=== PATIENT | male | born 1950 | race Caucasian/White ===

== ENCOUNTER 2017-05-21 23:30 | Emergency (ER) | payer BC ==
[2017-05-21] MEDS ORDERED: Albuterol/Ipratropium 3.0-0.5 MG/3 ML Neb Soln NEB ONE (23:40)
[2017-05-22] MEDS ORDERED: Albuterol 8 GM Inhaler INH ONE (00:26)
[2017-05-22] MEDS ORDERED: predniSONE 20 MG Tab PO ONE (00:26)
[2017-05-22 00:39] VITALS: BP 155/72
--- NOTE | 2017-05-22 05:25 | ER ---
DATE SEEN: 05/21/2017 CHIEF COMPLAINT: Cough. HISTORY OF PRESENT ILLNESS: This is a 66-year-old male who has had a cough for a week or so that is nonproductive, associated with wheezing and he wants to make sure it does not turn to pneumonia. He was in the clinic, but treated conservatively. He denies any fever or chest pain, but is short of breath. MEDICATIONS: Reviewed. Please see the nurse's notes SOCIAL HISTORY: Denies smoking. REVIEW OF SYSTEMS: All other systems were unremarkable. ALLERGIES: Penicillin. PHYSICAL EXAMINATION: GENERAL: He is in no cardiopulmonary distress. He is pleasant, overnourished. EARS, NOSE, AND THROAT: Negative. NECK: No thyromegaly or lymphadenopathy. CARDIOVASCULAR: Negative. RESPIRATORY SYSTEM: He has end-expiratory rhonchi on both lung woods. LABORATORY DATA: Chest x-ray: I reviewed the image independently, no acute process. CBC: Mild elevation of white cell count. Troponin negative. EKG; normal sinus rhythm. IMPRESSION: Acute bronchitis. PLAN: 1. DuoNeb x1. 2. Prednisone 10 mg b.i.d. 3. Refill his albuterol to use every 4 hours p.r.n. 2 puffs. I would like him to be seen in the office on Saturday. Return to the ED with any worsening symptoms. /[id number] SHANNAN/MAHSA
--- NOTE | 2017-05-23 07:20 | CR ---
INDICATION: Shortness of breath. CHEST: Two PA views of the chest were obtained and revealed the heart to be normal in size and shape. The aorta is tortuous with calcification in the arch. No definite evidence of CHF is seen. Mild dextroconvex scoliosis of upper middle thoracic spine is noted. Bridging hyperostotic changes are noted in the thoracic spine, mainly in the mid to lower middle area. IMPRESSION: No acute process. No comparisons were available. MTDD
== END 2017-05-22 00:35 | disposition home or self-care (01) ==
LOC: FB.ED 23:30
DX: J20.9 Acute bronchitis, unspecified (principal); Z88.0 Allergy status to penicillin
CPT/HCPCS: 36415; 71010; 80053; 83880; 84484; 85025; 93005; 94640; 99285; A9270; J7620

== ENCOUNTER 2019-07-18 19:37 | Emergency (ER) | payer BC, MEDICARE ==
[2019-07-18] MEDS ORDERED: predniSONE 20 MG Tab PO ONE (19:38)
[2019-07-18] MEDS ORDERED: Albuterol 8 GM Inhaler INH ONE (19:38)
[2019-07-18] MEDS ORDERED: Albuterol/Ipratropium 3.0-0.5 MG/3 ML Neb Soln NEB ONE (19:53)
[2019-07-18] MEDS ORDERED: Albuterol/Ipratropium 3.0-0.5 MG/3 ML Neb Soln ONE (19:54)
--- NOTE | 2019-07-18 19:57 | EDM.PDOC ---
ED HPI GENERAL MEDICAL PROBLEM - General Stated Complaint: SOB; WHEEZING Time Seen by Provider: 07/18/19 19:54 Source of Information: Reports: Patient History Limitations: Reports: No Limitations - History of Present Illness INITIAL COMMENTS - FREE TEXT/NARRATIVE: 68 yo male with cough,shortness of breath and wheezing. This started a week ago, and getting worse. Was seen today at the [facility],given Flonase and Zpak,which have afforded no improvement of his symptoms.He also endorses anxiety and a panic feeling,for account of breathing difficulty. He has obesity,HTN and tobacco abuse( chewing) - Related Data Allergies Allergy/AdvReac Type Severity Reaction Status Date / Time outdoor seasonal Allergy Sneezing, Uncoded 07/18/19 20:01 Itchy eyes Home Meds: Home Meds Metoprolol Succinate 200 mg PO DAILY 10/03/13 [History] Aspirin [Halfprin] 81 mg PO DAILY 06/14/14 [History] Potassium Chloride [Klor-Con 10] 10 meq PO DAILY 06/14/14 [History] amLODIPine [Norvasc] 10 mg PO DAILY 06/14/14 [History] hydroCHLOROthiazide [Hydrochlorothiazide] 25 mg PO DAILY 06/14/14 [History] Azithromycin 1 tab PO ASDIRECTED 07/18/19 [History] Fluticasone Propionate [Flonase] 1 spray AKBAR ASDIRECTED 07/18/19 [History] Loratadine [Claritin] 10 mg PO DAILY PRN 07/18/19 [History] Past Medical History - Past Health History Medical/Surgical History: Denies Medical/Surgical History Cardiovascular History: Reports: High Cholesterol, Hypertension Respiratory History: Reports: SOB Social & Family History - Caffeine Use Caffeine Use: Reports: Coffee, Tea ED ROS GENERAL - Review of Systems Review Of Systems: Comprehensive ROS is negative, except as noted in HPI. ED EXAM, GENERAL - Physical Exam Exam: See Below Exam Limited By: No Limitations General Appearance: Alert, Anxious, Mild Distress Ears: Normal External Exam, Normal Canal, Hearing Grossly Normal, Normal TMs Ear Exam: Bilateral Ear: Auricle Normal, Canal Normal, TM normal Nose: Normal Inspection Throat/Mouth: Normal Lips Head: Atraumatic Neck: Normal Inspection Respiratory/Chest: Decreased Breath Sounds, Rhonchi, Wheezing Cardiovascular: Normal Peripheral Pulses, Regular Rate, Rhythm, No Edema GI/Abdominal: Normal Bowel Sounds Extremities: Normal Inspection, No Pedal Edema Neurological: Alert Psychiatric: Normal Affect Skin Exam: Warm EKG INTERPRETATION Rhythm: NSR Course - Vital Signs Last Recorded V/S: Last Vital Signs Temp 98.1 F 07/18/19 19:45 Pulse 105 H 07/18/19 21:00 Resp 20 07/18/19 21:00 BP 155/90 H 07/18/19 21:00 Pulse Ox 95 07/18/19 21:00 - Orders/Labs/Meds Orders: Active Orders 24 hr Category Date Time Status EKG Documentation Completion [RC] ASDIRECTED Care 07/18/19 19:42 Active EKG Documentation Completion [RC] ASDIRECTED Care 07/18/19 19:42 Active RT Aerosol Therapy [RC] ASDIRECTED Care 07/18/19 19:53 Active CXR [Chest 2V] [CR] Stat Exams 07/18/19 19:42 Ordered EKG 12 Lead [EK] Routine Ther 07/18/19 19:42 Ordered Labs: Laboratory Tests 07/18/19 07/18/19 07/18/19 Range/Units 19:50 19:50 19:50 WBC 9.7 (4.5-12.0) X10-3/uL RBC 5.23 (4.30-5.75) x10(6)uL Hgb 15.5 (13.5-17.8) g/dL Hct 46.5 (30.0-51.3) % MCV 88.9 (80-96) fL MCH 29.6 (27.7-33.6) pg MCHC 33.3 (32.2-35.4) g/dL RDW 14.5 (11.5-15.5) % Plt Count 302 (125-369) X10(3)uL MPV 7.5 (7.4-10.4) fL Neut % (Auto) 70.3 (46-82) % Lymph % (Auto) 14.3 (13-37) % [place] % (Auto) 11.0 (4-12) % Eos % (Auto) 4 (1.0-5.0) % Baso % (Auto) 1 (0-2) % Neut # (Auto) 6.7 (1.6-8.3) # Lymph # (Auto) 1.4 (0.6-5.0) # [place] # (Auto) 1.1 (0.0-1.3) # Eos # (Auto) 0.4 (0.0-0.8) # Baso # (Auto) 0.1 (0.0-0.2) # Sodium 137 (135-145) mmol/L Potassium 3.4 L (3.5-5.3) mmol/L Chloride 100 (100-110) mmol/L Carbon Dioxide 27 (21-32) mmol/L BUN 25 H (7-18) mg/dL Creatinine 1.8 H (0.70-1.30) mg/dL Est Cr Clr Drug Dosing TNP Estimated GFR (MDRD) 38 L (>60) BUN/Creatinine Ratio 13.9 (9-20) Glucose 129 H (80-116) mg/dL Calcium 9.0 (8.6-10.2) mg/dL Total Bilirubin 0.3 (0.1-1.3) mg/dL AST 50 H D (5-25) IU/L ALT 48 H D (12-36) U/L Alkaline Phosphatase 86 (56-112) IU/L Troponin I 18.4 (4.0-60.3) pg/mL NT-Pro-B Natriuret Pep 153 H (<=125) pg/mL Total Protein 8.7 H (6.0-8.0) g/dL Albumin 3.3 (3.2-4.6) g/dL Globulin 5.4 g/dL Albumin/Globulin Ratio 0.6 Meds: Medications Discontinued Medications Generic Name Dose Route Start Last Admin Trade Name Karo PRN Reason Stop Dose Admin Albuterol/Ipratropium 3 ml 07/18/19 19:53 07/18/19 19:58 Duoneb 3.0-0.5 Mg/3 Ml NEB 07/18/19 19:54 3 ml ONETIME ONE Administration Albuterol/Ipratropium Confirm 07/18/19 19:54 07/18/19 20:36 Duoneb 3.0-0.5 Mg/3 Ml Administered 07/18/19 19:55 Not Given Dose 3 ml .ROUTE .STK-MED ONE Departure - Departure Time of Disposition: 21:20 Disposition: Home, Self-Care 01 Condition: Good Clinical Impression: Hypertension Qualifiers: Hypertension type: other secondary hypertension Qualified Code(s): I15.8 - Other secondary hypertension - Discharge Information Sepsis Event Note - Focused Exam Vital Signs: Vital Signs Temp Pulse Resp BP Pulse Ox 07/18/19 21:00 105 H 20 155/90 H 95 07/18/19 19:45 98.1 F 108 H 24 H 154/86 H 95 Date Exam was Performed: 07/18/19 Time Exam was Performed: 21:18 - Problem List & Annotations (1) Acute bronchitis SNOMED Code(s): 75783551 Code(s): J20.9 - ACUTE BRONCHITIS, UNSPECIFIED Status: Acute Current Visit: Yes Qualifiers: Bronchitis organism: unspecified organism Qualified Code(s): J20.9 - Acute bronchitis, unspecified (2) Morbid obesity with BMI of 50.0-59.9, adult SNOMED Code(s): 612225616, 15854983497277 Code(s): E66.01 - MORBID (SEVERE) OBESITY DUE TO EXCESS CALORIES; Z68.43 - BODY MASS INDEX (BMI) 50.0-59.9, ADULT Status: Acute Current Visit: No (3) Hypertension SNOMED Code(s): 22151456 Code(s): I10 - ESSENTIAL (PRIMARY) HYPERTENSION Status: Acute Current Visit: Yes Qualifiers: Hypertension type: other secondary hypertension Qualified Code(s): I15.8 - Other secondary hypertension - Problem List Review Problem List Initiated/Reviewed/Updated: Yes - My Orders Last 24 Hours: My Active Orders 07/18/19 19:42 EKG Documentation Completion [RC] ASDIRECTED EKG Documentation Completion [RC] ASDIRECTED CXR [Chest 2V] [CR] Stat EKG 12 Lead [EK] Routine 07/18/19 19:53 RT Aerosol Therapy [RC] ASDIRECTED - Assessment/Plan Last 24 Hours: My Active Orders 07/18/19 19:42 EKG Documentation Completion [RC] ASDIRECTED EKG Documentation Completion [RC] ASDIRECTED CXR [Chest 2V] [CR] Stat EKG 12 Lead [EK] Routine 07/18/19 19:53 RT Aerosol Therapy [RC] ASDIRECTED Plan: Xray looks good to me. I will send him home with Prednisone and Albuterol inhaler. Follow up with PCP on Saturday.
[2019-07-18 21:04] VITALS: BP 155/90; PULSE 105
--- NOTE | 2019-07-20 11:04 | CR ---
INDICATION: Short of breath. CHEST TWO VIEWS: Two PA views and two lateral views of the chest were obtained 07/18/19 and compared with 05/22/17. The heart appears enlarged and increased in size compared with the previous study. The aorta is tortuous with calcification in the arch. Bridging hyperostotic changes are noted in the mid thoracic spine to the most severe degree but are seen extending above and below the mid thoracic spine. Prominent AP diameter, flattening of diaphragm leaves and hyperaeration all are compatible with COPD. Evidence of exogenous obesity is noted. Somewhat heavy interstitial markings suggest a mild degree of interstitial fibrosis appearing similar to the previous examination. A consolidation pneumonia or effusion was not identified. IMPRESSION: 1. COPD. 2. ASHD with cardiomegaly -- progressive ASHD. 3. Exogenous obesity. 4. DJD spine. MTDD
== END 2019-07-18 21:30 | disposition home or self-care (01) ==
LOC: FB.ED 19:37
DX: I15.8 Other secondary hypertension (principal); I10 Essential (primary) hypertension; E66.9 Obesity, unspecified; Z68.44 Body mass index [BMI] 60.0-69.9, adult; Z79.82 Long term (current) use of aspirin; Z79.899 Other long term (current) drug therapy; Z91.09 Other allergy status, other than to drugs and biological substances
CPT/HCPCS: 36415; 71046; 80053; 83880; 84484; 85025; 93005; 94640; 99285; A9270; J7620-GY

== ENCOUNTER 2020-06-22 17:23 | Emergency (ER) | payer BC, MEDICARE ==
[2020-06-22] MEDS ORDERED: Acetaminophen/oxyCODONE 325-5 MG Tab PO ONE (17:24)
[2020-06-22] MEDS ORDERED: Alum Hydroxide/Mag Hydroxide 15 ML, Lidocaine 2% 15 ML PO ONE ×2 (17:56)
[2020-06-22] MEDS ORDERED: Sodium Chloride 0.9% 10 ML Syringe FLUSH PRN (18:21)
[2020-06-22] MEDS ORDERED: Morphine 4 MG/ML VIAL IVPUSH ONE (18:22)
[2020-06-22] MEDS ORDERED: Iopamidol 755 Mg/ML 100 ML Bottle IV ONE (18:25)
[2020-06-22] MEDS ORDERED: Sodium Chloride 0.9% 1,000 ML IV SCH (18:30)
[2020-06-22 19:28] VITALS: BP 165/83; PULSE 71
[2020-06-22] MEDS ORDERED: Potassium Chloride 20 MEQ Tab.ER PO ONE (19:45)
[2020-06-22] MEDS ORDERED: Levofloxacin 500 MG Tab PO STA (19:48)
--- NOTE | 2020-06-22 19:55 | EDM.PDOC ---
ED HPI GENERAL MEDICAL PROBLEM - General Chief Complaint: Abdominal Pain Stated Complaint: STOMACH ACHE Time Seen by Provider: 06/22/20 19:40 Source of Information: Reports: Patient - History of Present Illness INITIAL COMMENTS - FREE TEXT/NARRATIVE: Patient presented to the ED bcause of 1 day history of epigastric pain. He tried taking omeprazole without any relief. There is no N/V/D. No cough/cold symptoms, fever,or chills. Epigastric pain Pain Score (Numeric/FACES): 4 - Related Data Allergies Allergy/AdvReac Type Severity Reaction Status Date / Time outdoor seasonal Allergy Sneezing, Uncoded 06/22/20 17:42 Itchy eyes Home Meds: Home Meds Metoprolol Succinate 200 mg PO DAILY 10/03/13 [History] Aspirin [Halfprin] 81 mg PO DAILY 06/14/14 [History] Potassium Chloride [Klor-Con 10] 10 meq PO DAILY 06/14/14 [History] amLODIPine [Norvasc] 10 mg PO DAILY 06/14/14 [History] hydroCHLOROthiazide [Hydrochlorothiazide] 25 mg PO DAILY 06/14/14 [History] Loratadine [Claritin] 10 mg PO DAILY PRN 07/18/19 [History] Acetaminophen/HYDROcodone [Cisco 325-5 MG] 1 - 2 tab PO Q4H PRN #10 tab 06/22/20 [Rx] Levofloxacin [Levaquin] 500 mg PO DAILY #10 tablet 06/22/20 [Rx] Losartan [Cozaar] 100 mg PO DAILY 06/22/20 [History] Omeprazole 20 mg PO DAILY 06/22/20 [History] levoFLOXacin [Levaquin] 500 mg PO DAILY #10 tab 06/22/20 [Rx] metFORMIN [Glucophage] 1,000 mg PO BIDMEALS 06/22/20 [History] Past Medical History - Past Health History Medical/Surgical History: Denies Medical/Surgical History Cardiovascular History: Reports: High Cholesterol, Hypertension Respiratory History: Reports: Sleep Apnea, SOB Other Respiratory History: Uses CPAP machine. Gastrointestinal History: Reports: GERD Endocrine/Metabolic History: Reports: Diabetes, Type II, Hypokalemia, Obesity/BMI 30+ - Infectious Disease History Infectious Disease History: Reports: Chicken Pox, Measles, Mumps - Past Surgical History GI Surgical History: Reports: Colonoscopy, EGD Social & Family History - Family History Family Medical History: No Pertinent Family History - Tobacco Use Tobacco Use Status *Q: Current Every Day Tobacco User Years of Tobacco use: 30 Packs/Tins Daily: 0.3 - Caffeine Use Caffeine Use: Reports: Coffee - Recreational Drug Use Recreational Drug Use: No ED ROS GENERAL - Review of Systems Review Of Systems: See Below Constitutional: Reports: No Symptoms HEENT: Reports: No Symptoms Respiratory: Reports: No Symptoms Cardiovascular: Reports: No Symptoms GI/Abdominal: Reports: Abdominal Pain : Reports: No Symptoms Musculoskeletal: Reports: No Symptoms Skin: Reports: No Symptoms Neurological: Reports: No Symptoms Psychiatric: Reports: No Symptoms Hematologic/Lymphatic: Reports: No Symptoms ED EXAM, GI/ABD - Physical Exam Exam: See Below Exam Limited By: No Limitations Ears: Normal External Exam, Hearing Grossly Normal Throat/Mouth: Normal Inspection, Normal Teeth Neck: Normal Inspection, Non-Tender, Full Range of Motion Respiratory/Chest: No Respiratory Distress Cardiovascular: Normal Peripheral Pulses, Regular Rate, Rhythm, No Edema, No Gallop GI/Abdominal Exam: Normal Bowel Sounds, Soft, Other (epigastric tenderness) Back Exam: Normal Inspection, Full Range of Motion Extremities: Normal Inspection, Normal Range of Motion Course - Vital Signs Text/Narrative:: Labs/EKG/CT abd/pelvis reult was discussed with patient NS 1 L bolus Do not take your Metformin for 2 days Toradol 30 mgIV Levaquin 500 mg po x1 Morphine 4 mg IV x1 Last Recorded V/S: Last Vital Signs Temp 36.8 C 06/22/20 17:30 Pulse 71 06/22/20 19:27 Resp 18 06/22/20 19:27 BP 165/83 H 06/22/20 19:27 Pulse Ox 97 06/22/20 19:27 - Orders/Labs/Meds Orders: Active Orders 24 hr Category Date Time Status EKG Documentation Completion [RC] ASDIRECTED Care 06/22/20 17:56 Active Abdomen Pelvis w Cont [CT] Stat Exams 06/22/20 18:21 Taken Sodium Chloride 0.9% [Normal Saline] 1,000 ml Med 06/22/20 18:30 Active IV ASDIRECTED Sodium Chloride 0.9% [Saline Flush] Med 06/22/20 18:21 Active 10 ml FLUSH ASDIRECTED PRN Saline Lock Insert [OM.PC] Routine Oth 06/22/20 18:21 Ordered EKG 12 Lead [EK] Routine Ther 06/22/20 17:55 Ordered Medication Orders Sodium Chloride (Normal Saline) 1,000 mls @ 999 mls/hr IV ASDIRECTED [place] Last Admin: 06/22/20 19:00 Dose: 999 mls/hr Documented by: MAX Sodium Chloride (Saline Flush) 10 ml FLUSH ASDIRECTED PRN PRN Reason: Keep Vein Open Labs: Laboratory Tests 06/22/20 06/22/20 06/22/20 Range/Units 17:55 17:55 17:55 WBC 12.2 H (3.2-10.1) x10-3/uL RBC 5.53 (3.90-5.90) x10(6)uL Hgb 16.0 (12.9-17.7) g/dL Hct 49.1 (38.3-50.1) % MCV 88.8 (80.8-98.7) fL MCH 28.8 (27.0-33.3) pg MCHC 32.5 (28.7-35.3) g/dL RDW 15.0 (12.4-15.0) % Plt Count 375 (117-477) x10(3)uL MPV 7.8 (6.7-11.0) fL Neut % (Auto) 77.2 H (40.3-71.8) % Lymph % (Auto) 12.6 L (15.8-45.3) % [place] % (Auto) 7.4 (5.5-15.2) % Eos % (Auto) 2.0 (0.1-6.8) % Baso % (Auto) 0.8 (0.3-3.8) % Neut # (Auto) 9.5 H (1.7-6.9) x10-3/uL Lymph # (Auto) 1.5 (0.5-4.5) x10-3/uL [place] # (Auto) 0.9 (0.0-1.2) x10-3/uL Eos # (Auto) 0.2 (0.0-0.6) x10-3/uL Baso # (Auto) 0.1 (0.0-0.3) x10-3/uL Sodium 136 (135-145) mmol/L Potassium 3.3 L (3.5-5.3) mmol/L Chloride 97 L (100-110) mmol/L Carbon Dioxide 27 (21-32) mmol/L BUN 15 D (7-18) mg/dL Creatinine 1.5 H (0.70-1.30) mg/dL Est Cr Clr Drug Dosing 46.23 mL/min Estimated GFR (MDRD) 47 L (>60) BUN/Creatinine Ratio 10.0 (9-20) Glucose 127 H (80-116) mg/dL Calcium 8.9 (8.6-10.2) mg/dL Total Bilirubin 0.5 (0.1-1.3) mg/dL AST 112 H D (5-25) IU/L ALT 38 H D (12-36) U/L Alkaline Phosphatase 87 (56-112) IU/L Troponin I 12.4 (4.0-60.3) pg/mL Total Protein 9.2 H (6.0-8.0) g/dL Albumin 3.7 (3.2-4.6) g/dL Globulin 5.5 g/dL Albumin/Globulin Ratio 0.7 Amylase (25-115) U/L Lipase 152 (73-393) U/L Urine Color (YELLOW) Urine Appearance (CLEAR) Urine pH (5.0-6.5) Ur Specific [place] (1.010-1.025) Urine Protein (NEGATIVE) mg/dL Urine Glucose (UA) (NORMAL) mg/dL Urine Ketones (NEGATIVE) mg/dL Urine Occult Blood (NEGATIVE) Urine Nitrite (NEGATIVE) Urine Bilirubin (NEGATIVE) Urine Urobilinogen (NEGATIVE) mg/dL Ur Leukocyte Esterase (NEGATIVE) Urine RBC (0-5) Urine WBC (0-5) Ur Squamous Epith Cells (NS,R,O) Urine Bacteria (NS) 06/22/20 06/22/20 Range/Units 17:55 18:45 WBC (3.2-10.1) x10-3/uL RBC (3.90-5.90) x10(6)uL Hgb (12.9-17.7) g/dL Hct (38.3-50.1) % MCV (80.8-98.7) fL MCH (27.0-33.3) pg MCHC (28.7-35.3) g/dL RDW (12.4-15.0) % Plt Count (117-477) x10(3)uL MPV (6.7-11.0) fL Neut % (Auto) (40.3-71.8) % Lymph % (Auto) (15.8-45.3) % [place] % (Auto) (5.5-15.2) % Eos % (Auto) (0.1-6.8) % Baso % (Auto) (0.3-3.8) % Neut # (Auto) (1.7-6.9) x10-3/uL Lymph # (Auto) (0.5-4.5) x10-3/uL [place] # (Auto) (0.0-1.2) x10-3/uL Eos # (Auto) (0.0-0.6) x10-3/uL Baso # (Auto) (0.0-0.3) x10-3/uL Sodium (135-145) mmol/L Potassium (3.5-5.3) mmol/L Chloride (100-110) mmol/L Carbon Dioxide (21-32) mmol/L BUN (7-18) mg/dL Creatinine (0.70-1.30) mg/dL Est Cr Clr Drug Dosing mL/min Estimated GFR (MDRD) (>60) BUN/Creatinine Ratio (9-20) Glucose (80-116) mg/dL Calcium (8.6-10.2) mg/dL Total Bilirubin (0.1-1.3) mg/dL AST (5-25) IU/L ALT (12-36) U/L Alkaline Phosphatase (56-112) IU/L Troponin I (4.0-60.3) pg/mL Total Protein (6.0-8.0) g/dL Albumin (3.2-4.6) g/dL Globulin g/dL Albumin/Globulin Ratio Amylase 38 (25-115) U/L Lipase (73-393) U/L Urine Color Yellow (YELLOW) Urine Appearance Clear (CLEAR) Urine pH 7.0 H (5.0-6.5) Ur Specific [place] 1.005 L (1.010-1.025) Urine Protein 100 H (NEGATIVE) mg/dL Urine Glucose (UA) Normal (NORMAL) mg/dL Urine Ketones Negative (NEGATIVE) mg/dL Urine Occult Blood Large H (NEGATIVE) Urine Nitrite Negative (NEGATIVE) Urine Bilirubin Negative (NEGATIVE) Urine Urobilinogen Normal (NEGATIVE) mg/dL Ur Leukocyte Esterase Negative (NEGATIVE) Urine RBC 0-5 (0-5) Urine WBC 0-5 (0-5) Ur Squamous Epith Cells Few H (NS,R,O) Urine Bacteria Few H (NS) Meds: Medications Generic Name Dose Route Start Last Admin Trade Name Freq PRN Reason Stop Dose Admin Sodium Chloride 1,000 mls @ 999 mls/hr 06/22/20 18:30 06/22/20 19:00 Normal Saline IV 999 mls/hr ASDIRECTED [place] Administration Sodium Chloride 10 ml 06/22/20 18:21 Saline Flush FLUSH ASDIRECTED PRN Keep Vein Open Discontinued Medications Generic Name Dose Route Start Last Admin Trade Name Freq PRN Reason Stop Dose Admin Al Hydroxide/Mg Hydroxide 15 0 ml 06/22/20 17:56 06/22/20 18:12 ml/ Lidocaine HCl 15 ml PO 06/22/20 17:57 30 ml ONETIME ONE Administration Iopamidol 100 ml 06/22/20 18:25 06/22/20 18:39 Isovue-370 (76%) IV 06/22/20 18:26 100 ml . DIRECTED ONE Administration Levofloxacin 500 mg 06/22/20 19:48 Levaquin PO 06/22/20 19:49 NOW STA Morphine Sulfate 4 mg 06/22/20 18:22 06/22/20 18:32 Morphine IVPUSH 06/22/20 18:23 4 mg ONETIME ONE Administration Potassium Chloride 40 meq 06/22/20 19:45 Klor-Con M20 PO 06/22/20 19:46 ONETIME ONE Departure - Departure Time of Disposition: 19:55 Disposition: Home, Self-Care 01 Condition: Good Clinical Impression: Cholelithiasis, Cholecystitis - Discharge Information Prescriptions: levoFLOXacin [Levaquin] 500 mg PO DAILY #10 tab Levofloxacin [Levaquin] 500 mg PO DAILY #10 tablet Acetaminophen/HYDROcodone [Cisco 325-5 MG] 1 - 2 tab PO Q4H PRN #10 tab PRN Reason: Pain Instructions: Cholelithiasis, [id number], Cholecystitis, [id number] Referrals: Inez Sales PA-C [Primary Care Provider] - Forms: ED Department Discharge Additional Instructions: Please read discharge instructions on cholelithiasis(gallstone) and cholecystitis(inflammation or infection of the gall bladder) Increase fluids Levaquin 500 mg daily for 10 days Take norco/hydrocone, 1-2 tablets every 4-6 hours as needed for pain Follow up with your doctor this week Sepsis Event Note (ED) - Evaluation Sepsis Screening Result: No Definite Risk - Focused Exam Vital Signs: Vital Signs Temp Pulse Resp BP Pulse Ox 06/22/20 19:27 71 18 165/83 H 97 06/22/20 17:56 69 18 166/81 H 98 06/22/20 17:30 36.8 C 74 20 182/105 H 98 - My Orders Last 24 Hours: My Active Orders 06/22/20 17:55 EKG 12 Lead [EK] Routine 06/22/20 17:56 EKG Documentation Completion [RC] ASDIRECTED 06/22/20 18:21 Abdomen Pelvis w Cont [CT] Stat Sodium Chloride 0.9% [Saline Flush] 10 ml FLUSH ASDIRECTED PRN Saline Lock Insert [OM.PC] Routine 06/22/20 18:30 Sodium Chloride 0.9% [Normal Saline] 1,000 ml IV ASDIRECTED - Assessment/Plan Last 24 Hours: My Active Orders 06/22/20 17:55 EKG 12 Lead [EK] Routine 06/22/20 17:56 EKG Documentation Completion [RC] ASDIRECTED 06/22/20 18:21 Abdomen Pelvis w Cont [CT] Stat Sodium Chloride 0.9% [Saline Flush] 10 ml FLUSH ASDIRECTED PRN Saline Lock Insert [OM.PC] Routine 06/22/20 18:30 Sodium Chloride 0.9% [Normal Saline] 1,000 ml IV ASDIRECTED
[2020-06-22] MEDS ORDERED: Ketorolac 30 MG/ML SDV IVPUSH ONE (20:02)
[2020-06-22] MEDS ORDERED: Potassium Chloride 20 MEQ Tab.ER ONE (20:25)
== END 2020-06-22 20:30 | disposition home or self-care (01) ==
LOC: FB.ED 17:23
DX: K80.10 Calculus of gallbladder with chronic cholecystitis without obstruction (principal); I10 Essential (primary) hypertension; K21.9 Gastro-esophageal reflux disease without esophagitis; E11.9 Type 2 diabetes mellitus without complications; F17.210 Nicotine dependence, cigarettes, uncomplicated; E66.9 Obesity, unspecified; Z68.43 Body mass index [BMI] 50.0-59.9, adult; Z91.048 Other nonmedicinal substance allergy status; Z79.82 Long term (current) use of aspirin; Z79.899 Other long term (current) drug therapy
CPT/HCPCS: 36415; 74177; 80053; 81001; 82150; 83690; 84484; 85025; 93005; 96374; 96375; 99284-25; A9270-GY; J1885; J2270; J7030; Q9967

== ENCOUNTER 2021-11-23 01:44 | Emergency (ER) | payer BC, MEDICARE ==
[2021-11-23] MEDS: Alum Hydroxide/Mag Hydroxide 15 ML, Lidocaine 2% 15 ML PO ONE ×2 (02:12)
[2021-11-23] MEDS: hydrOXYzine HCl 50 MG/ML SDV IM ONE (02:13)
[2021-11-23] MEDS: Morphine 10 MG/ML SDV IM ONE (02:13)
[2021-11-23 02:39] LABS: ESTIMATED GFR 40 (>60)
[2021-11-23] MEDS: cloNIDine 0.1 MG Tab PO ONE (02:59)
[2021-11-23 06:14] VITALS: BP 159/90; PULSE 59
== END 2021-11-23 05:40 | disposition home or self-care (01) ==
LOC: FB.ED 01:44
DX: K27.9 Peptic ulcer, site unspecified, unspecified as acute or chronic, without hemorrhage or perforation (principal); I15.8 Other secondary hypertension; I10 Essential (primary) hypertension; K21.9 Gastro-esophageal reflux disease without esophagitis; E11.9 Type 2 diabetes mellitus without complications; E66.9 Obesity, unspecified; Z68.41 Body mass index [BMI] 40.0-44.9, adult; Z79.899 Other long term (current) drug therapy; Z79.82 Long term (current) use of aspirin; Z79.84 Long term (current) use of oral hypoglycemic drugs; Z91.09 Other allergy status, other than to drugs and biological substances
CPT/HCPCS: 36415; 80053; 83690; 84484; 85025; 93005; 96372; 99284; A9270; J2270; J3410; 93010; 99282